=== PATIENT | male | born 1980 | race Caucasian/White ===

== ENCOUNTER → 2020-04-29 | Outpatient (CLI) | payer OTHER | LOC: EXRD 04-07 09:00 | DX: R74.8 Abnormal levels of other serum enzymes (principal) | CPT/HCPCS: 76705 ==

== ENCOUNTER 2020-12-16 11:22 | Emergency (ER) | payer OTHER ==
[2020-12-16] MEDS ORDERED: CYCLOBENZAPRINE5 MG PO (13:39)
[2020-12-16] MEDS ORDERED: NAPROSYN500 MG PO (13:39)
== END 2020-12-16 14:18 | disposition home or self-care (01) ==
LOC: ER1 11:22
DX: S33.5XXA Sprain of ligaments of lumbar spine, initial encounter (principal); S39.012A Strain of muscle, fascia and tendon of lower back, initial encounter; S33.9XXA Sprain of unspecified parts of lumbar spine and pelvis, initial encounter; E11.9 Type 2 diabetes mellitus without complications; I10 Essential (primary) hypertension; F17.290 Nicotine dependence, other tobacco product, uncomplicated; X50.0XXA Overexertion from strenuous movement or load, initial encounter
CPT/HCPCS: 72100; 96372; 99283; J1885